=== PATIENT | male | born 1940 | race Caucasian/White ===

== ENCOUNTER → 2024-08-15 08:40 | Outpatient (REF) | payer OTHER, SELFPAY | LOC: HWRAD 08:40 | PROVIDERS: ATTENDING PHYSICIAN Specialist; FAMILY PHYSICIAN Internal Medicine | DX: N20.0 Calculus of kidney (principal) | CPT/HCPCS: 74178; Q9967 ==

== ENCOUNTER 2024-09-11 06:11 | Day surgery (SDC) | payer OTHER, SELFPAY ==
--- NOTE | 2024-09-01 14:50 | VNURNOTE ---
Received info from [facility] regarding pt's upcoming TURBT with Dr Sweeney on 09/11. Home Health Liaison called patient to discuss [facility] nurse/therapy, visits, schedule and homebound status. Patient is agreeable and understands that visits at home will be
2-3 x per week to assess and teach medical and cade management. Patient is aware that [facility] will contact them for start of care in 1-2 days after discharge from .
[facility] referral completed in [facility].
[2024-09-02 08:57] VITALS: BMI 26.5
[2024-09-02 11:30] LABS: Hematocrit 42.8 % (39.0-52.0); Hemoglobin 14.4 g/dL (13.0-18.0); Mean Corp Hgb Conc. 33.6 g/dL (33.0-37.0); Mean Corpuscular Hgb 30.1 pg (27.0-31.0); Mean Corpuscular Volume 89.5 fL (80.0-94.0); Mean Platelet Volume 9.8 fL (7.4-10.4); Platelet Count 230 10^3/uL (130-400); Red Blood Cell Count 4.78 10^6/uL (4.70-6.10); Red Cell Dist. Width 12.8 % (11.5-14.5); White Blood Cell Count 6.8 10^3/uL (4.8-10.8)
[2024-09-02 12:10] LABS: Blood Urea Nitrogen 24 mg/dl (9-20); Calcium 9.1 mg/dl (8.4-10.2); Carbon Dioxide 29 mmol/L (22-30); Chloride 103 mmol/L (98-107); Estimated Creatinine Clearance 50 ml/min; Glucose 88 mg/dl (70-99); Potassium 4.3 mmol/L (3.5-5.1); Sodium 145 mmol/L (135-145); eGFR > 60.00
[2024-09-11] VITALS (12 sets, daily range): BP systolic 116–140; BP diastolic 61–78; BMI 26.5
[2024-09-11] MEDS: SYRINGE NON-PUMP 50 ML IRRIG ×2 (08:57→08:59)
[2024-09-11] MEDS: SYRINGE NON-PUMP 50 MG IRRIG ×2 (08:57→08:59)
[2024-09-11] MEDS: SUBLIMAZE 25 MCG IV (09:35)
== END 2024-09-11 11:00 | disposition home or self-care (01) ==
LOC: SDS 06:11
PROVIDERS: ATTENDING PHYSICIAN Specialist; FAMILY PHYSICIAN Internal Medicine
DX: C67.3 Malignant neoplasm of anterior wall of bladder (principal); C67.2 Malignant neoplasm of lateral wall of bladder; D49.4 Neoplasm of unspecified behavior of bladder; N32.89 Other specified disorders of bladder
CPT/HCPCS: 52240; 88307; 36415; 80048; 85027; 93005

== ENCOUNTER 2024-11-18 06:22 | Day surgery (SDC) | payer OTHER, SELFPAY ==
[2024-11-18] VITALS (9 sets, daily range): BP systolic 129–153; BP diastolic 60–98; BMI 25.8
[2024-11-18] MEDS: CYSVIEW KIT 100 MG INTRAVES (08:59)
[2024-11-18] MEDS: NORMOSOL-R/PLASMALYTE-A 1000 IV (09:00)
[2024-11-18] MEDS: SYRINGE NON-PUMP 50 ML IRRIG ×2 (11:12→11:13)
[2024-11-18] MEDS: SYRINGE NON-PUMP 50 MG IRRIG ×2 (11:12→11:13)
== END 2024-11-18 13:05 | disposition home or self-care (01) ==
LOC: SDS 06:22
PROVIDERS: ATTENDING PHYSICIAN Specialist
DX: C67.9 Malignant neoplasm of bladder, unspecified (principal); Z85.51 Personal history of malignant neoplasm of bladder
CPT/HCPCS: 52235; 51720; C9738; 88307; A9589; J9201